=== PATIENT | male | born 1980 | race Caucasian/White ===

== ENCOUNTER 2019-03-25 21:30 | Emergency (ER) | payer OTHER ==
[~2019-03-25] VITALS: Ht 170.2 cm; Wt 76.4 kg
[2019-03-25] MEDS ORDERED: IBUP200C25 PO (21:38)
[2019-03-25] MEDS ORDERED: ROBA500T PO (22:31)
[2019-03-25] MEDS ORDERED: IBUP-1022 PO (22:31)
[2019-03-25 22:36] VITALS: BP 134/81
[2019-03-25] MEDS ORDERED: CYCLOBENZAPRINE 10 MG TAB PO ONE (23:00)
[2019-03-25] MEDS ORDERED: IBUPROFEN 600 MG TAB PO ONE (23:00)
== END 2019-03-25 23:06 | disposition home or self-care (01) ==
LOC: M ED 21:30
DX: M54.5 Low back pain (principal)